=== PATIENT | female | born 1945 | race Caucasian/White ===

== ENCOUNTER 2019-10-08 12:07 | Emergency (ER) | payer MEDICARE ==
[2019-10-08 13:27] VITALS: BP 128/72
--- NOTE | 2019-10-08 14:56 | UC ---
Hip/Pelvis Pain - HPI Summary HPI Summary: 74 yo female with onset of tenderness overlying right sacrum 4 days ago tenderness has progressively worsened and today has been unable to bear wt. no back pain no rash no injury hurts to lay on right side but no tenderness of greater troch no f/c hx breast CA/MS - History Of Current Complaint Chief Complaint: UCLowerExtremity Stated Complaint: RT HIP PAIN Time Seen by Provider: 10/08/19 14:38 Hx Obtained From: Patient Onset/Duration: Gradual Onset, Lasting Days Timing: Constant Severity Initially: Mild Severity Currently: Severe Pain Intensity: 4 - 10 with wt bearing Pain Scale Used: 0-10 Numeric Location: Discrete At: - see image Character Of Pain: Sharp, Aching Aggravating Factor(s): Movement, Weight Bearing Alleviating Factor(s): Rest, Position Associated Signs And Symptoms: Positive: Negative Female Torso: 1 - tender here/no rash/no swelling - Allergies/Home Medications Allergies/Adverse Reactions: Allergies Allergy/AdvReac Type Severity Reaction Status Date / Time amoxicillin [From Augmentin] Allergy Mild Nausea And Verified 10/08/19 13:20 Vomiting clavulanic acid Allergy Mild Nausea And Verified 10/08/19 13:20 [From Augmentin] Vomiting Sulfa (Sulfonamide Allergy Mild Rash And Verified 10/08/19 13:20 Antibiotics) Itching Home Medications: Home Medications Aspirin EC TAB* [Ecotrin EC Low Dose 81 MG*] 1 tab PO QPM 03/20/19 [History Confirmed 10/08/19] Cholecalciferol TAB* [Vitamin D TAB*] 50,000 unit WEEKLY 03/20/19 [History Confirmed 10/08/19] Cyanocobalamin TAB* [Vitamin B12 TAB*] 1,000 mcg PO DAILY 03/20/19 [History Confirmed 10/08/19] Escitalopram * [Lexapro 5 mg (NF)] 5 mg PO QPM 03/20/19 [History Confirmed 10/07] Levothyroxine TAB* [Synthroid TAB*] 100 mcg PO DAILY 03/20/19 [History Confirmed 10/08/19] Magnesium Oxide [Magnesium] 1 tab PO QAM 03/20/19 [History Confirmed 10/08/19] Omeprazole 20 mg PO QAM 03/20/19 [History Confirmed 10/08/19] Oxybutynin TAB* [Ditropan TAB*] 1 tab PO QAM 03/20/19 [History Confirmed ] Rosuvastatin Calcium 1 tab PO QPM 03/20/19 [History Confirmed 10/08/19] Fluticasone NASAL SPRAY 50MCG* [Flonase NASAL SPRAY 50MCG*] 2 spray BOTH NARES DAILY 10/08/19 [History Confirmed 10/08/19] L.acidoph,Paracasei, B.lactis [Probiotic] 1 each PO DAILY 10/08/19 [History Confirmed 10/08/19] Naproxen [Naproxen 500 mg tab] 500 mg PO BID PRN #20 tablet 10/08/19 [Rx] PMH/Surg Hx/FS Hx/Imm Hx Previously Healthy: Yes Endocrine History: Dyslipidemia Neurological History: Other Other Neurological History: MS Cancer History: Breast Cancer - Surgical History Surgical History: Yes Surgery Procedure, Year, and Place: RIGHT AXILLARY NODE, 1986. R PARTIAL THYROID, 2005. BILAT KN SCOPE; LEFT TOTAL KNEE, 2014. L CATARACT, 2018. COLONOSCOPY/GASTROSCROPY, 2017 - Family History Known Family History: Positive: Hypertension - Social History Alcohol Use: Daily Alcohol Amount: wine daily Substance Use Type: None Smoking Status (MU): Never Smoked Tobacco - Immunization History Most Recent Tetanus Shot: 2007 Review of Systems All Other Systems Reviewed And Are Negative: Yes Constitutional: Positive: Negative Skin: Positive: Negative Eyes: Positive: Negative ENT: Positive: Negative Respiratory: Positive: Negative Cardiovascular: Positive: Negative Gastrointestinal: Positive: Negative Genitourinary: Positive: Negative Motor: Positive: Negative Neurovascular: Positive: Negative Musculoskeletal: Positive: Other: - see HPI Neurological/Mental Status: Positive: Negative Psychological: Positive: Negative Physical Exam Triage Information Reviewed: Yes Appearance: Well-Appearing, No Pain Distress, Well-Nourished Vital Signs: Initial Vital Signs Temp 98.3 F 10/08/19 13:21 Pulse 80 10/08/19 13:21 Resp 15 10/08/19 13:21 BP 128/72 10/08/19 13:21 Pulse Ox 99 10/08/19 13:21 Vital Signs Reviewed: Yes Eyes: Positive: Conjunctiva Clear ENT: Positive: Hearing grossly normal, Uvula midline. Negative: Nasal congestion, Nasal drainage, Tonsillar swelling, Tonsillar exudate, Trismus, Muffled voice, Hoarse voice, Sinus tenderness Dental Exam: Normal Neck: Positive: Supple, Nontender, No Lymphadenopathy Respiratory: Positive: Lungs clear, Normal breath sounds, No respiratory distress, No accessory muscle use Cardiovascular: Positive: RRR, No Murmur Musculoskeletal: Positive: ROM Intact, No Edema, Other: - no right hip pain with axial compression/internal or external rotation, non tender greater troch Neurological: Positive: Alert Psychological Exam: Normal Skin Exam: Other - no vesicular rash Hip Injury Course/Dx - Differential Dx/Diagnosis Provider Diagnosis: Sacrocoxalgia of right side of sacrum Discharge ED - Sign-Out/Discharge Documenting (check all that apply): Patient Departure All imaging exams completed and their final reports reviewed: Yes - Discharge Plan Condition: Stable Disposition: HOME Prescriptions: Naproxen [Naproxen 500 mg tab] 500 mg PO BID PRN #20 tablet PRN Reason: Pain Referrals: Raul Jones MD [Primary Care Provider] - As Soon As Possible Additional Instructions: Your XR of the right hip and pelvis showed no fracture I am unsure of the cause of your pain I think you need further imaging of this issue contact your primary care for follow up - Billing Disposition and Condition Condition: STABLE Disposition: Home
[2019-10-08] MEDS ORDERED: Ketorolac INJ* 30 MG/ML 1 ML VIAL IM ONE (15:00)
== END 2019-10-08 15:58 | disposition home or self-care (01) ==
LOC: UCCORT 12:07
DX: M53.3 Sacrococcygeal disorders, not elsewhere classified (principal); E78.5 Hyperlipidemia, unspecified; G35 Multiple sclerosis; Z79.899 Other long term (current) drug therapy; Z85.3 Personal history of malignant neoplasm of breast; Z88.0 Allergy status to penicillin; Z88.2 Allergy status to sulfonamides
CPT/HCPCS: 96372; 99212; G0463; J1885